=== PATIENT | female | born 1985 | race African-American/Black ===

== ENCOUNTER 2022-05-20 08:11 | Emergency (ER) | payer OTHER ==
[~2022-05-20] VITALS: Ht 165.1 cm; Wt 131.5 kg
[2022-05-20] MEDS ORDERED: ORPHENADRINE CITRATE 30 MG/ML VIAL IM ONE (09:15)
== END 2022-05-20 10:06 | disposition home or self-care (01) ==
LOC: ER 08:25
DX: M25.552 Pain in left hip (principal); M79.652 Pain in left thigh; S76.112A Strain of left quadriceps muscle, fascia and tendon, initial encounter; E11.9 Type 2 diabetes mellitus without complications; E66.01 Morbid (severe) obesity due to excess calories
CPT/HCPCS: 73502; 73552; 99283; J2360

== ENCOUNTER 2025-04-09 13:41 | Emergency (ER) | payer OTHER ==
[~2025-04-09] VITALS: Ht 165.1 cm; Wt 121.6 kg
[2025-04-09 15:29] LABS: LEUKOCYTE ESTERASE ,URINE SMALL (NEGATIVE); PROTEIN,URINE DIPSTICK 2+ (NEGATIVE); URINE UROBILINOGEN 0.2 mg/dL (0.2 - 1)
[2025-04-09 15:37] LABS: EPITHELIAL CELLS,URINE MANY /LPF; WBC,URINE (MAN) >50 /HPF (0-5)
[2025-04-09 15:41] LABS: BASOPHILS % 0.3 % (0.0-1.0); EOSINOPHILS % 1.1 % (0.0-6.0); LYMPHOCYTES % 41.0 % (18.0-39.1); MONOCYTES % 6.5 % (4.4-11.3); NEUTROPHILS % 50.9 % (38.7-80.0); RED CELL DISTRIBUTION WIDTH 13.1 % (11.7-14.4)
[2025-04-09 15:54] LABS: EST GLOMERULAR FILTRATION RATE 95.0 ML/MIN (>=60)
[2025-04-09] MEDS ORDERED: DOXYCYCLINE HY100 MG PO (16:47)
[2025-04-09] MEDS ORDERED: METRONIDAZOLE500 MG PO (16:48)
[2025-04-09] MEDS ORDERED: LIDOCAINE HCL 10 MG/ML VIAL INJ ONE (17:42)
[2025-04-09 17:45] VITALS: PULSE 76; RESP 17; TEMP 98; O2SAT 98
[2025-04-09] MEDS: CEFTRIAXONE 500 MG VIAL IM ONE (17:45)
== END 2025-04-09 18:12 | disposition home or self-care (01) ==
LOC: ER 16:35
DX: A59.03 Trichomonal cystitis and urethritis (principal); R30.0 Dysuria; M54.50 Low back pain, unspecified; I10 Essential (primary) hypertension; E11.9 Type 2 diabetes mellitus without complications; E78.5 Hyperlipidemia, unspecified; Z88.0 Allergy status to penicillin
CPT/HCPCS: 36415; 80053; 81001; 82948; 85025; 99284; J0696